=== PATIENT | female | born 1980 | race Caucasian/White ===

== ENCOUNTER 2024-02-13 23:24 | Emergency (ER) | payer OTHER ==
[~2024-02-13] VITALS: Ht 149.9 cm; Wt 66.7 kg
[2024-02-14] MEDS ORDERED: ACETAMINOPHEN 325 MG TAB ONE (00:16)
[2024-02-14] MEDS: ACETAMINOPHEN 325 MG TAB PO ONE (00:19)
[2024-02-14 00:32] LABS: STREPTOCOCCUS GRP A ANTIGEN NEGATIVE (NEGATIVE)
[2024-02-14 00:52] LABS: INFLUENZAE A&B ANTIGEN (RAPID) NEGATIVE (NEGATIVE); RESPIRATORY SYNC. VIRUS NEGATIVE (NEGATIVE)
[2024-02-14] MEDS ORDERED: MEDROL4 M2 PO (01:24)
[2024-02-14] MEDS ORDERED: BENZONATATE200 MG PO (01:24)
[2024-02-14 01:30] VITALS: PULSE 110; RESP 20; TEMP 100.2; O2SAT 99
== END 2024-02-14 01:31 | disposition home or self-care (01) ==
LOC: ER 23:30
DX: R50.9 Fever, unspecified (principal); J06.9 Acute upper respiratory infection, unspecified; R05.9 Cough, unspecified; I10 Essential (primary) hypertension; J45.909 Unspecified asthma, uncomplicated
CPT/HCPCS: 71046; 83518; 87070; 87400; 87420; 99284; U0002